=== PATIENT | female | born 1975 | race Two or more races ===

== ENCOUNTER 2022-03-21 10:18 | Emergency (ER) | payer MEDICAID ==
[~2022-03-21] VITALS: Ht 167.6 cm; Wt 90.4 kg
[2022-03-21 11:34] VITALS: BP 129/76
[2022-03-21] MEDS ORDERED: LIDOCAINE W/ EPINEPHRINE 2% INJ 20ML VIAL ONE (11:41)
[2022-03-21] MEDS ORDERED: LIDOCAINE 2%HCL (LOCAL ANESTH.) INJ 20ML MDV ONE (11:42)
[2022-03-21] MEDS ORDERED: LIDOCAINE 1% HCL (LOCAL ANESTH.) INJ 20ML MDV ONE (11:42)
[2022-03-21] MEDS ORDERED: BACDST PO (11:52)
[2022-03-21] MEDS ORDERED: CEPH-510 PO (11:52)
[2022-03-21] MEDS ORDERED: IBUP800T27 PO (11:52)
== END 2022-03-21 12:12 | disposition home or self-care (01) ==
LOC: ER 10:18
DX: S70.361A Insect bite (nonvenomous), right thigh, initial encounter (principal); Z79.1 Long term (current) use of non-steroidal anti-inflammatories (NSAID); Z79.899 Other long term (current) drug therapy; W57.XXXA Bitten or stung by nonvenomous insect and other nonvenomous arthropods, initial encounter; Y93.89 Activity, other specified; Y92.89 Other specified places as the place of occurrence of the external cause; Y99.8 Other external cause status
CPT/HCPCS: 99283; J2001